=== PATIENT | female | born 1980 | race African-American/Black ===

== ENCOUNTER 2020-11-08 22:50 | Emergency (ER) | payer OTHER ==
[~2020-11-08] VITALS: Ht 170.2 cm; Wt 133.0 kg
--- NOTE | 2020-11-08 23:10 | EKG ---
[address] [address] Test Date: 2020-11-08 Test Time: 22:59:46 Pat Name: NAVI PASTRANA Department: Room: Gender: F General Manager: KALYANI : 1980 Requested By: GAY REESE Order Number: [id number] Reading MD: Measurements Intervals [place] Rate: 118 P: 33 AR: 120 QRS: 7 QRSD: 82 T: -48 QT: 338 QTc: 476 Interpretive Statements SINUS TACHYCARDIA S1,S2,S3 PATTERN QRS(T) CONTOUR ABNORMALITY CONSISTENT WITH INFERIOR INFARCT AGE UNDETERMINED T ABNORMALITY IN ANTERIOR LEADS ABNORMAL ECG RI6.02 No previous ECG available for comparison
[2020-11-08 23:29] LABS: BASO # 0.1 x10^3/uL (0.0-0.2); BASO % 1 % (0-3); EOS # 0.1 x10^3/uL (0.0-0.7); EOS % 1 % (0-3); HEMATOCRIT 35.8 % (36.0-47.0); HEMOGLOBIN 11.7 g/dL (12.0-15.5); LYMPH # 2.5 x10^3/uL (1.0-4.8); LYMPH % 30 % (24-48); MEAN CORPUSCULAR HEMOGLOBIN 29 pg (25-35); MEAN CORPUSCULAR HGB CONC 33 g/dL (31-37); MEAN CORPUSCULAR VOLUME 89 fL (79-100); MONO # 0.4 x10^3/uL (0.0-1.1); MONO % 6 % (0-9); NEUT # 5.1 x10^3uL (1.8-7.7); NEUT % 63 % (31-73); PLATELET COUNT 331 x10^3/uL (140-400); RED BLOOD COUNT 4.04 x10^6/uL (3.50-5.40); RED CELL DISTRIBUTION WIDTH 13.9 % (11.5-14.5); WHITE BLOOD COUNT 8.1 x10^3/uL (4.0-11.0)
[2020-11-08] MEDS ORDERED: ASPIRIN 325 MG TABLET PO ONE (23:30)
[2020-11-08 23:37] LABS: CALCIUM 8.8 mg/dL (8.5-10.1); CREATININE 0.9 mg/dL (0.6-1.0); GFR 84.8; POTASSIUM 3.8 mmol/L (3.5-5.1)
--- NOTE | 2020-11-08 23:37 | PHYS DOC ---
Past History Past Medical History: No Pertinent History Past Surgical History: No Surgical History Smoking: Non-smoker Alcohol Use: None Drug Use: None General Adult EDM: Chief Complaint: CHEST PAIN shortness of breath HPI: HPI: Patient is a 40-year-old female who presents to the emergency department with shortness of breath and chest pain that began about 5 days ago and has continued to worsen since then. Patient said that it became unbearable today because she cannot walk more than 5 steps without shortness of breath and chest pain. She describes chest pain as chest "tightness" on the right side of her chest that occasionally radiates to her upper right quadrant of her abdomen but does not radiate anywhere else. Patient has not taken anything for pain. Patient says that sitting or laying down with pillows behind her back is the best to help reduce the pain in her chest and shortness of breath. Patient has no pertinent medical history, but also does not follow-up with any PCP. Patient has never had a pulmonary embolism, SD, or CVA. Patient is with in the emergency department. Patient states that she has never had this before this episode that started 5 days ago. Patient denies any vision change or falls. Patient complains of the pain is significant when it tabs worse but does wax and wane. Patient does reports some intermittent lower extremity swelling and discomfort. Review of Systems: Review of Systems: Constitutional: Denies fever or chills Eyes: Denies redness or eye pain HENT: Denies nasal congestion or sore throat Respiratory: Denies cough; reports shortness of breath Cardiovascular: Reports chest pain; denies palpitations GI: Denies abdominal pain, nausea, or vomiting : Denies dysuria or hematuria Musculoskeletal: Denies back pain or joint pain Integument: Denies rash or skin lesions Neurologic: Denies headache, focal weakness or sensory changes Complete systems were reviewed and found to be within normal limits, except as documented in this note. Current Medications: Current Meds: Current Medications Medications (Trade) Dose Ordered Sig/Sarath Start Time Stop Time Status Last Admin Dose Admin Aspirin (Venecia Aspirin) 325 mg 1X ONCE 11/08/20 23:30 11/08/20 23:31 11/08/20 23:14 325 MG Sodium Chloride 1,000 ml @ 1,000 mls/hr 1X ONCE 11/08/20 23:45 11/09/20 00:44 Allergies: Allergies: Allergies Coded Allergies Type Severity Reaction Last Updated Verified No Known Drug Allergies 11/08/20 No Physical Exam: PE: Constitutional: Well developed, well nourished, no acute distress, non-toxic appearance HENT: Normocephalic, atraumatic Eyes: PERRL, EOMI, conjunctiva normal, no discharge Neck: Normal range of motion, no tenderness, supple Lungs & Thorax: No respiratory distress, equal chest rise and fall, reduced a eration noted bilaterally Abdomen: Soft, no tenderness Skin: Warm, dry, no erythema, no rash Back: No tenderness, no CVA tenderness Extremities: No tenderness, ROM intact, trace edema bilaterally Neurologic: Alert and oriented X 3, normal motor function, normal sensory function, no focal deficits noted Psychologic: Affect normal, judgment normal Current Patient Data: Vital Signs: Vital Signs Date Time Temp Pulse Resp B/P (MAP) Pulse Ox O2 Delivery O2 Flow Rate FiO2 11/08/20 23:01 98.2 121 18 153/104 (120) 95 Room Air EKG: EK , HR 118 bpm, QRS 82ms, QT/QTc 338/476ms, LA 120ms abnormal ECG, sinus tachycardia, inverted T waves in lead III, aVF, II, v3-v5 Radiology/Procedures: Radiology/Procedures: PROCEDURE: CT ANGIOGRAPHY CHEST CTA chest with contrast dated 11/09/2020. No comparison available. Clinical data indication: Chest pain and elevated d-dimer. TECHNIQUE: Contiguous axial imaging the chest performed following the intravenous administration of 100 cc Isovue-370. Study was performed as dedicated PE protocol with thin cut coronal MIPS 3-D reconstruction. One or more of the following individualized dose reduction techniques were utilized for this examination: 1. Automated exposure control 2. Adjustment of the mA and/or kV according to patient size 3. Use of iterative reconstruction technique. FINDINGS: Subtotally occlusive filling defect at the distal right main pulmonary artery f illing the upper lobe, middle lobe and basilar segmental branches. There is also subtotally occlusive filling defect at the main left lower lobe and lingular branches with partially occlusive filling defect in the left upper lobe segmental branches. Heart size is mildly enlarged. There is mild displacement of the ventricular septum with right-sided chamber enlargement suggesting strain pattern. No pericardial effusion. No mediastinal, hilar or axillary lymphadenopathy. Thyroid gland unremarkable. Total airways are patent. Mild diffuse bronchial wall thickening. No consolidation or pleural effusion. No pneumothorax. Limited images of the upper abdomen are unremarkable. No acute bony abnormality. Multilevel spondylosis. Impression: 1. Extensive bilateral pulmonary emboli. Please see above report for details. 2. Right-sided heart chamber enlargement with mild flattening of the ventricular septum, suggesting a right heart strain pattern. 3. Clear lungs. Results discussed with ER physician at approximately 2:00 AM on the day of study. Electronically signed by: Gabo Johnston MD (11/09/2020 2:03 AM) [facility] [place] Score: C/O Chest Pain: Yes HEART Score for Chest Pain: HEART Score for Chest Pain Response (Comments) Value History Moderately Suspicious 1 ECG Normal 0 Age < 45 0 Risk Factors No Risk Factors 0 Troponin >1-<3x Normal Limit 1 Total 2 Risk Factors: Risk Factors: DM, Current or recent (<one month) smoker, HTN, HLP, family history of CAD, obesity. Risk Scores: Score 0 - 3: 2.5% MACE over next 6 weeks - Discharge Home Score 4 - 6: 20.3% MACE over next 6 weeks - Admit for Clinical Observation Score 7 - 10: 72.7% MACE over next 6 weeks - Early Invasive Strategies Course & Med Decision Making: Course & Med Decision Making Pertinent Labs and Imaging studies reviewed. (See chart for details) Patient presents with chest discomfort and shortness of breath which is worse with exertion. EKG was sinus tachycardia. Cannot exclude PE per PERC. Labs obtained and posted to chart. BNP elevated at greater than 1200. Troponin slightly elevated at 0.06. ASA given. D-dimer elevated. CTA chest obtained with findings consistent for bilateral extensive PEs. Lovenox provided. Patient requiring transfer for admission for further evaluation and treatment. Discussed with Dr. Cardona (hospitalist) who is in agreement with transfer to [facility] for admission. Discussed findings and plan with patient and family, who acknowledge understanding and agreement. Radha Disclaimer: Radha Disclaimer: This electronic medical record was generated, in whole or in part, using a voice recognition dictation system. Departure Departure: Impression: Primary Impression: Bilateral pulmonary embolism Additional Impression: Elevated troponin Disposition: [facility] ([facility]- Dr. Cardona accepting) Admitting Physician: Oswald Cardona Condition: GUARDED Referrals: PCP,NO (PCP) Critical Care Time Critical care time was 30 minutes which includes time at bedside, spent in discussion of patient's care with specialists and/or family members, with interpretation of laboratory and/or radiological studies and is exclusive of procedures. GABO REESE DO Nov 08, 2020 23:37
[2020-11-08] MEDS ORDERED: IV NORMAL SALINE 1,000ML 1,000 ML IV ONE (23:45)
[2020-11-08 23:52] LABS: ALBUMIN/GLOBULIN RATIO 0.7 (1.0-1.7); MAGNESIUM 1.7 mg/dL (1.8-2.4); TOTAL BILIRUBIN 0.4 mg/dL (0.2-1.0); TOTAL PROTEIN 7.6 g/dL (6.4-8.2)
[2020-11-09] MEDS ORDERED: CONTRAST GIVEN. MC PRN (00:30)
[2020-11-09 00:52] LABS: BILIRUBIN,URINE NEG (NEG); CLARITY,URINE CLEAR; COLOR,URINE YELLOW; GLUCOSE,URINE NEG (NEG)
[2020-11-09 00:53] LABS: BACTERIA,URINE 0 /HPF (0-FEW); NITRITE,URINE NEG (NEG); RBC,URINE 0 /HPF (0-2); SQUAMOUS EPITHELIAL CELL,UR FEW /LPF; UROBILINOGEN,URINE 0.2 mg/dL (0.2 mg/dL); WBC,URINE OCC /HPF (0-4)
[2020-11-09] MEDS ORDERED: IOHEXOL 350 MG/ML 100 ML VIAL. IV ONE (01:00)
[2020-11-09 01:54] LABS: U PREG PATIENT NEGATIVE (NEG)
--- NOTE | 2020-11-09 02:06 | RAD ---
CTA chest with contrast dated 11/09/2020. No comparison available. Clinical data indication: Chest pain and elevated d-dimer. TECHNIQUE: Contiguous axial imaging the chest performed following the intravenous administration of 100 cc Isovu e-370. Study was performed as dedicated PE protocol with thin cut coronal MIPS 3-D reconstruction. One or more of the following individualized dose reduction techniques were utilized for this examinat ion: 1. Automated exposure control 2. Adjustment of the mA and/or kV according to patient size 3. Use of iterative reconstruction technique. FINDINGS: Subtotally occlusive filling defect at the distal right main pulmonary artery filling the upper lobe, middle lobe and basilar segmental branches. There is also subtotally occlusive filling defect at the main left lower lobe and lingular branches with partially occlusive filling defect in the left upper lobe segmental branches. Heart size is mildly enlarged. There is mild displacement of the ventricular septum with right-sided chamber enlargement suggesting strain pattern. No pericardial effusion. No mediastinal, hilar or axil kim lymphadenopathy. Thyroid gland unremarkable. Total airways are patent. Mild diffuse bronchial wall thickening. No consolidation or pleural effusio n. No pneumothorax. Limited images of the upper abdomen are unremarkable. No acute bony abnormality. Multilevel spondylos is. Impression: 1. Extensive bilateral pulmonary emboli. Please see above report for details. 2. Right-sided heart chamber enlargement with mild flattening of the ventricular septum, suggesting a right heart strain pattern. 3. Clear lungs. Results discussed with ER physician at approximately 2:00 AM on the day of study. Electronically signed by: Gabo Johnston MD (11/09/2020 2:03 AM) [facility]
[2020-11-09] MEDS ORDERED: ENOXAPARIN ** NOTE DOSE ** SYRINGE SQ ONE (02:45)
[2020-11-09 03:50] VITALS: BP 111/78
== END 2020-11-09 04:08 | disposition short-term general hospital (02) ==
LOC: ER 22:50
DX: I26.99 Other pulmonary embolism without acute cor pulmonale (principal); R77.8 Other specified abnormalities of plasma proteins
CPT/HCPCS: 36415; 71275; 80053; 81001; 81025; 82553; 83690; 83735; 83880; 84484; 85025; 85379; 93005; 96361; 96374; 99291; J3010; J7030; Q9967